=== PATIENT | female | born 1960 | race Caucasian/White ===

== ENCOUNTER 2024-04-18 20:26 | Emergency (ER) | payer OTHER, SELFPAY ==
[2024-04-18 20:33] VITALS: BP 134/63
[2024-04-18] MEDS: TORADOL 30 MG IM (21:36)
--- NOTE | 2024-04-18 22:51 | ED.GENMED ---
History of Present Illness
General
Chief Complaint: Musculo-Skeletal Complaint
Source: patient
Exam Limitations: none
Time Seen by Provider: 04/18/24 20:49
Nursing documentation reviewed up to this point in time: agreed with
History of Present Illness
History of Present Illness:
63-year-old female past medical history of hypertension, GERD presenting to the emergency department today with concerns of left wrist discomfort after falling directly on her left wrist prior to arrival. Denies additional injuries. Not on blood
thinners.
Review of Systems
Review of Systems
Allergies reviewed?: Yes
All Other Systems: ROS reviewed and negative except as documented in HPI and ROS
Phy Exam
Physical Exam
Physical Exam:
GENERAL: Alert , in no apparent distress
EYE: pupils equal and reactive
NECK: Supple, no significant adenopathy.
ENT: o/p clr, mmm.
CARDIAC: Regular rate and rhythm .
LUNGS: Clear breath sounds bilaterally, no acute respiratory distress, no wheezes/rales/rhonchi
ABDOMEN: Soft, without focal tenderness, no r/g, no cvat
NEUROLOGICAL: Alert and oriented, no focal neuro deficits
SKIN: Warm and dry, skin intact.
MUSCULOSKELETAL: Swelling discomfort to the left wrist. Good wagon driller strength normal range of motion of the elbow. No edema, well perfused.
PSYCH: Normal and appropriate interaction.
Course
Orders/Labs/Results
Orders:
Orders
04/18/24 20:37
Wrist, Left 3 Views CR [CR Wrist - Left Min 3 Views] Urgent
Comment:
Reason For Exam: injury
04/18/24 21:26
Ketorolac [Toradol] 30 mg IM NOW STA
Vital Signs
Initial and Last Documented VS:
Initial Vital Signs
Temp Pulse Resp BP Pulse Ox
97.5 F 66 18 134/63 99
04/18/24 20:33 04/18/24 20:33 04/18/24 20:33 04/18/24 20:33 04/18/24 20:33
Last Documented Vital Signs
Temp Pulse Resp BP Pulse Ox
97.5 F 66 18 134/63 99
04/18/24 20:33 04/18/24 20:33 04/18/24 20:33 04/18/24 20:33 04/18/24 20:33
Procedures
Splinting/Sling Placement
Left Wrist:
Procedure completed by: Myself
Pre-splint extermity exam: neurovascular intact
Type of splint: sugar-tong
Splint material: fiberglass
Splint checked by provider?: Yes
Type of sling: sling fitted
Normal distal neurovascular exam?: Yes
MDM/Problems Addressed
MDM/Problems Addressed:
63-year-old female presenting to the emergency department today with concerns of left wrist discomfort. Found have a distal radius fracture. Patient was splinted otherwise will follow-up with orthopedics. Return precautions given. No additional
injuries.
*Critical Care Note
Total Time (30-74mins, 75-104mins- exclusive of procedures): Not Applicable
ED Attending Note
-
Portions of this chart may have been created with voice recognition software.� Occasional wrong word or��sound alike� substitutions may have occurred due to the inherent limitations of voice recognition software.
Discharge Plan
Departure
Patient Disposition: Home (Routine Discharge)
Date of Disposition: 04/18/24
Time of Disposition: 22:53
Patient with high blood pressure during this ER visit?: No
Condition: Good
Covid-19: Not Applicable
Discharge Problem:
Distal radius fracture, left
Instructions: Wrist Fracture (DC)
Prescriptions:
No Action
guaifenesin 600 MG tablet extended release
600 mg PO BID
levothyroxine [Synthroid] 150 MCG tablet
150 mcg PO
woelzn-bntotsu-xidbcfs 1 EACH capsule
1 cap PO
Coenzyme Q10
2 tab PO DAILY
Patient Comments:
b complex
[facility]
Referrals:
NONE,* [Family Provider] -
Noah Caldera MD [Active] - Follow up in 5-7 days
Activity Restrictions/Additional Instructions:
You came to the emergency department today with concerns of left-sided wrist discomfort. You are found to have a distal radius fracture. Please leave the splint in place and follow-up with orthopedics within 1 week. Return for any worsening, new
or concerning symptoms.
Interventions
Interventions:
*Risk Screen - Suicide Last Done: 04/18/24 20:33
*General Assessment Last Done: 04/18/24 20:33
*Neglect/Abuse Screening Last Done: 04/18/24 22:01
*ED COVID-19 Vaccine History Last Done: 04/18/24 20:33
ED-Musculoskeletal Assessment Last Done: 04/18/24 22:01
Discharge Date and Time
Print Language: MALDIVIAN
== END 2024-04-18 22:57 | disposition home or self-care (01) ==
LOC: EMR 20:26
PROVIDERS: EMERGENCY PHYSICIAN Student in an Organized Health Care Education/Training Program
DX: S52.592A Other fractures of lower end of left radius, initial encounter for closed fracture (principal); W01.0XXA Fall on same level from slipping, tripping and stumbling without subsequent striking against object, initial encounter; I10 Essential (primary) hypertension; K21.9 Gastro-esophageal reflux disease without esophagitis
CPT/HCPCS: 99284; 29125; 96372; 73110

== ENCOUNTER 2024-04-28 11:42 | Emergency (ER) | payer OTHER, SELFPAY ==
[2024-04-28 11:43] VITALS: BMI 26.4
[2024-04-28 11:47] VITALS: BP 153/106
--- NOTE | 2024-04-28 12:24 | ED.GENMED ---
History of Present Illness
General
Chief Complaint: Musculo-Skeletal Complaint
Source: patient
Exam Limitations: none
Time Seen by Provider: 04/28/24 12:04
Nursing documentation reviewed up to this point in time: agreed with
History of Present Illness
History of Present Illness:
Patient is a 63-year-old female who presents to the ER for evaluation. Patient was seen here April 18 and diagnosed with a left wrist fracture. She was splinted and was trying to follow-up with orthopedics but was initially told they do not accept
her insurance. She has since reached out to her insurance and this is indeed covered. She is only here today because she was not able to get in with orthopedics however has just resolved her issue.
She has no physical points she has been wearing splint and sling.
Review of Systems
Review of Systems
Allergies reviewed?: Yes
All Other Systems: ROS reviewed and negative except as documented in HPI and ROS
Constitutional: Reports no symptoms
Respiratory: Reports no symptoms
Cardiac: Reports no symptoms
ABD/GI: Reports no symptoms
Musculoskeletal: Reports no symptoms and other (known left wrist fracture no complaints )
Skin: Reports no symptoms
Neurological: Reports no symptoms
Psychiatric: Reports no symptoms
Phy Exam
General Physical Exam
General Presentation: no apparent distress
General age: appears stated age
General Skin: warm and dry
General Habitus: normal
General Mental: alert
General Hydration: appears well hydrated
Neurological Exam
Neurological Exam: alert
Musculoskeletal Exam
Musculoskeletal Exam: other (lue with splint in place mild swelling to fingers, nml sensation )
Skin Exam
Skin Exam: normal color and warm/dry
Psychiatric Exam
Psychiatric Exam: normal mood/affect
Course
Vital Signs
Initial and Last Documented VS:
Initial Vital Signs
Temp Pulse Resp BP Pulse Ox
98.0 F 65 16 153/106 98
04/28/24 11:47 04/28/24 11:47 04/28/24 11:47 04/28/24 11:47 04/28/24 11:47
Last Documented Vital Signs
Temp Pulse Resp BP Pulse Ox
98.0 F 65 16 153/106 98
04/28/24 11:47 04/28/24 11:47 04/28/24 12:00 04/28/24 11:47 04/28/24 11:47
MDM/Problems Addressed
MDM/Problems Addressed:
Patient initially presented to the ER because she was recently diagnosed with a left wrist fracture splinted here April 18. She was not able to get in with Ortho because she was told they did not accept her insurance however she recently found out
they do I was able to speak orthopedic office and she has an appointment with Dr. Rudolph at 1 PM she was instructed to go directly there now. She has no physical complaints
*Critical Care Note
Total Time (30-74mins, 75-104mins- exclusive of procedures): Not Applicable
ED Attending Note
-
Portions of this chart may have been created with voice recognition software.� Occasional wrong word or��sound alike� substitutions may have occurred due to the inherent limitations of voice recognition software.
Discharge Plan
Departure
Patient Disposition: Home (Routine Discharge)
Date of Disposition: 04/28/24
Time of Disposition: 12:30
Patient with high blood pressure during this ER visit?: Yes
Condition: Fair
Covid-19: Not Applicable
Discharge Problem:
left wrist fracture
Instructions: Wrist Fracture (DC)
Prescriptions:
No Action
guaifenesin 600 MG tablet extended release
600 mg PO BID
levothyroxine [Synthroid] 150 MCG tablet
150 mcg PO
uttkrd-zhbrpop-hukdems 1 EACH capsule
1 cap PO
Coenzyme Q10
2 tab PO DAILY
Patient Comments:
b complex
[facility]
Referrals:
Collette Rudolph I., DO [Active] -
Activity Restrictions/Additional Instructions:
Go directly to the ambulatory orthopedic center for appointment in 1 PM today
Interventions
Interventions:
*Risk Screen - Suicide Last Done: 04/28/24 11:47
*General Assessment Last Done: 04/28/24 11:59
*Neglect/Abuse Screening Last Done: 04/28/24 11:47
*ED- Fall Risk Assessment Last Done: 04/28/24 11:59
ED-Musculoskeletal Assessment Last Done: 04/28/24 11:59
Discharge Date and Time
Print Language: WALLISIAN
== END 2024-04-28 12:36 | disposition home or self-care (01) ==
LOC: EMR 11:42
PROVIDERS: EMERGENCY PHYSICIAN Emergency Medicine
DX: S62.102A Fracture of unspecified carpal bone, left wrist, initial encounter for closed fracture (principal); X58.XXXA Exposure to other specified factors, initial encounter
CPT/HCPCS: 99282

== ENCOUNTER → 2024-05-01 11:28 | Outpatient (REF) | payer OTHER, SELFPAY ==
[2024-05-01 12:19] LABS: % Basophils 1.4 % (0-2); % Eosinophils 3.5 % (0-6); % Immature Granulocytes 0.5 % (0-0.5); % Lymphocytes 27.9 % (20.5-51.1); % Monocytes 6.3 % (1.7-9.3); % Neutrophils 60.4 % (42.2-75.2); Absolute Basophils 0.2 10^3/uL (0-0.2); Absolute Eosinophils 0.4 10^3/uL (0-0.7); Absolute Immature Granulocytes 0.1 10^3/uL (0-0.05); Absolute Lymphocytes 2.9 10^3/uL (1.2-3.4); Absolute Monocytes 0.7 10^3/uL (0.1-0.6); Absolute Neutrophils 6.3 10^3/uL (1.4-6.5); Hematocrit 43.8 % (37.0-47.0); Hemoglobin 14.3 g/dL (12.0-16.0); Mean Corp Hgb Conc. 32.6 g/dL (33.0-37.0); Mean Platelet Volume 10.2 fL (7.4-10.4); Nucleated Red Blood Cells % 0 %; Platelet Count 276 10^3/uL (130-400); Red Blood Cell Count 4.61 10^6/uL (4.20-5.40); Red Cell Dist. Width 13.7 % (11.5-14.5); White Blood Cell Count 10.4 10^3/uL (4.8-10.8)
[2024-05-01 13:40] LABS: Blood Urea Nitrogen 18 mg/dl (7-17); Calcium 10.4 mg/dl (8.4-10.2); Carbon Dioxide 28 mmol/L (22-30); Chloride 102 mmol/L (98-107); Glucose 90 mg/dl (70-99); Potassium 4.2 mmol/L (3.5-5.1); Sodium 141 mmol/L (135-145); eGFR > 60.00
== END ==
LOC: REG 11:28
PROVIDERS: ATTENDING PHYSICIAN Orthopaedic Surgery Hand Surgery
DX: Z01.818 Encounter for other preprocedural examination (principal)
CPT/HCPCS: 36415; 80048; 85025; 93005